=== PATIENT | female | born 1960 | race Caucasian/White ===

== ENCOUNTER 2017-03-14 13:46 | Emergency (ER) | payer BC ==
--- NOTE | 2017-03-14 15:01 | RAD ---
INDICATION: Left elbow and wrist pain after slip and fall injury COMPARISON: None. TECHNIQUE: 2 views left elbow and 3 views of the left wrist. REPORT: The visualized bones are well corticated and properly aligned. There is no radiographically apparent fracture or dislocation. There is no radiographic evidence of pathologic joint effusion. IMPRESSION: No radiographically apparent fracture or dislocation of the left elbow or left wrist. If the patient's symptoms persist further follow-up imaging is recommended.
[2017-03-14 15:29] VITALS: BP 136/76
--- NOTE | 2017-03-15 11:36 | ED ---
Upper Extremity Pain - HPI Summary HPI Summary: Patient presents to the ED with CC of R shoulder, elbow and forearm pain after falling in the lobby a few moments ago. - History of Current Complaint Chief Complaint: EDExtremityUpper Stated Complaint: FALL Time Seen by Provider: 03/14/17 14:02 - Allergies/Home Medications Allergies/Adverse Reactions: Allergies Allergy/AdvReac Type Severity Reaction Status Date / Time Adhesive Tape Allergy Blisters Verified 03/14/17 14:00 MS Acetaminophen Allergy Hives Verified 03/14/17 14:00 [From Percocet] MS Etodolac [From Lodine] Allergy Hives Verified 03/14/17 14:00 MS Oxycodone [From Percocet] Allergy Hives Verified 03/14/17 14:00 MS Ranitidine [From Zantac] Allergy "LOOPY" Verified 03/14/17 14:00 PMH/Surg Hx/FS Hx/Imm Hx Endocrine/Hematology History: Denies: Hx Diabetes Cardiovascular History: Denies: Hx Hypertension, Hx Pacemaker/ICD History: Denies: Hx Renal Disease Sensory History: Denies: Hx Hearing Aid Psychiatric History: Denies: Hx Panic Disorder - Cancer History Hx Chemotherapy: No Hx Radiation Therapy: No - Surgical History Surgery Procedure, Year, and Place: Rt & Lt CARPAL TUNNEL - [place]. 2 C SECTION. Lt BREAST BIOPSY - [place] Infectious Disease History: No Infectious Disease History: Denies: Traveled Outside the [place] in Last 30 Days - Social History Alcohol Use: Occasionally Substance Use Type: Reports: None Smoking Status (MU): Never Smoked Tobacco Physical Exam Vital Signs On Initial Exam: Initial Vitals Temp Pulse Resp BP Pulse Ox 97.6 F 60 16 135/78 98 03/14/17 13:49 03/14/17 13:49 03/14/17 13:49 03/14/17 13:49 03/14/17 13:49 Diagnostics - Vital Signs Vital Signs Temp Pulse Resp BP Pulse Ox 03/14/17 15:20 97.6 F 61 16 136/76 99 03/14/17 13:49 97.6 F 60 16 135/78 98 - Laboratory Lab Statement: Any lab studies that have been ordered have been reviewed, and results considered in the medical decision making process. Discharge - Discharge Plan Condition: Stable Disposition: HOME Patient Education Materials: Contusion in Adults (ED) Referrals: Kaylie Peck MD [Primary Care Provider] - Additional Instructions: Please follow-up with your PCP if symptoms persist Moist heat to the area will help Ibuprofen 600 mg 3 times daily for any pain or inflammation
== END 2017-03-14 15:20 | disposition home or self-care (01) ==
LOC: ED 13:46
DX: M25.511 Pain in right shoulder (principal); M25.521 Pain in right elbow; M79.631 Pain in right forearm; W01.0XXA Fall on same level from slipping, tripping and stumbling without subsequent striking against object, initial encounter; Y92.89 Other specified places as the place of occurrence of the external cause
CPT/HCPCS: 99282

== ENCOUNTER 2017-03-15 18:41 | Emergency (ER) | payer BC ==
[2017-03-15] MEDS ORDERED: Acetaminophen TAB* 325 MG PO ONE (19:32)
--- NOTE | 2017-03-15 20:27 | RAD ---
HISTORY: Left lower lateral rib pain, fall COMPARISONS: None VIEWS: 6, Frontal view of the chest with frontal and oblique views of the left hemithorax FINDINGS: There is no displaced rib fracture or pneumothorax. The visualized lungs are clear. IMPRESSION: NO DISPLACED RIB FRACTURE OR PNEUMOTHORAX
[2017-03-15] MEDS ORDERED: traMADol TAB* 50 MG PO ONE ×2 (20:49→20:57)
--- NOTE | 2017-03-15 21:02 | ED ---
Taras Orosco Jennifer, scribed for Fernando Quevedo MD on 03/15/17 at 1936 . HPI Chest Pain - HPI Summary HPI Summary: The patient is a 56 year old female who presents to the ED with pain on the left side after she fell on ice one hour ago. She complains of pain along the left ribs and abdominal pain that shoots up to the ribs. The patient denies headache, ankle pain, knee pain, and wrist pain. She adds that she has hurt her ribs before. - History of Current Complaint Chief Complaint: EDChestWallPain Time Seen by Provider: 03/15/17 19:24 Hx Obtained From: Patient Onset/Duration: Started Hours Ago - one hour ago, Still Present Timing: Constant Initial Severity: Moderate Current Severity: Moderate Pain Intensity: 8 Pain Scale Used: 0-10 Numeric Chest Pain Location: Diffuse - shoots up to the ribs Chest Pain Radiates: Yes Chest Pain Radiates To:: Back - along the left side Aggravating Factor(s): Nothing Alleviating Factor(s): Nothing Associated Signs and Symptoms: Positive: Other: - Rib pain, left side pain. NEGATIVE: Headache, ankle pain, knee pain, wrist pain. - Allergy/Home Medications Allergies/Adverse Reactions: Allergies Allergy/AdvReac Type Severity Reaction Status Date / Time Adhesive Tape Allergy Blisters Verified 03/14/17 14:00 MS Acetaminophen Allergy Hives Verified 03/14/17 14:00 [From Percocet] MS Etodolac [From Lodine] Allergy Hives Verified 03/14/17 14:00 MS Oxycodone [From Percocet] Allergy Hives Verified 03/14/17 14:00 MS Ranitidine [From Zantac] Allergy "LOOPY" Verified 03/14/17 14:00 PMH/Surg Hx/FS Hx/Imm Hx Endocrine/Hematology History: Denies: Hx Diabetes Cardiovascular History: Denies: Hx Hypertension, Hx Pacemaker/ICD History: Denies: Hx Renal Disease Sensory History: Denies: Hx Hearing Aid Psychiatric History: Denies: Hx Panic Disorder - Cancer History Hx Chemotherapy: No Hx Radiation Therapy: No - Surgical History Surgery Procedure, Year, and Place: Rt & Lt CARPAL TUNNEL - [place]. 2 C SECTION. Lt BREAST BIOPSY - [place] Infectious Disease History: No Infectious Disease History: Denies: Traveled Outside the [place] in Last 30 Days - Family History Known Family History: Negative: Diabetes - Social History Alcohol Use: Occasionally Substance Use Type: Reports: None Smoking Status (MU): Never Smoked Tobacco Review of Systems Negative: Fever Positive: Other - Rib pain, left side pain. Negative: Myalgia - ankle, knee, wrist Negative: Headache All Other Systems Reviewed And Are Negative: Yes Physical Exam - Summary Physical Exam Summary: General: well-appearing, no pain distress Skin: warm, color reflects adequate perfusion, dry Head: normal Eyes: EOMI, DEVORA ENT: normal Neck: supple, nontender Respiratory: CTA, breath sounds present. Lungs clear. Cardiovascular: RRR Abdomen: soft, nontender. No CVA tenderness. Bowel: present Musculoskeletal: tender left lateral ribs, strength/ROM intact Neurological: normal, sensory/motor intact, A&O x3 Psychological: affect/mood appropriate Triage Information Reviewed: Yes Vital Signs On Initial Exam: Initial Vitals Temp Pulse Resp BP Pulse Ox 97.7 F 82 22 156/78 98 03/15/17 18:48 03/15/17 18:48 03/15/17 18:48 03/15/17 18:48 03/15/17 18:48 Vital Signs Reviewed: Yes Diagnostics - Vital Signs Vital Signs Temp Pulse Resp BP Pulse Ox 03/15/17 18:48 97.7 F 82 22 156/78 98 - Laboratory Lab Statement: Any lab studies that have been ordered have been reviewed, and results considered in the medical decision making process. - Radiology Ribs with Chest XR Xray Interpretation: No Acute Changes - NO DISPLACED RIB FRACTURE OR PNEUMOTHORAX. Dr. Quevedo has reviewed this report. Radiology Interpretation Completed By: Radiologist Chest Pain Course/Dx - Course Course Of Treatment: BP noted and advised to follow up with PCP. Allergies noted. Medications reviewed. - Diagnoses Provider Diagnoses: Blood pressure elevated without history of HTN, Chest wall pain, Rib contusion Discharge - Discharge Plan Condition: Stable Disposition: HOME Prescriptions: traMADol TAB* [Ultram*] 50 mg PO Q6HR PRN #20 tab MDD 4 PRN Reason: Pain Patient Education Materials: Rib Contusion (ED), Chest Wall Pain (ED) Referrals: Kaylie Peck MD [Primary Care Provider] - Additional Instructions: FOLLOW UP WITH YOUR DOCTOR. RETURN TO THE EMERGENCY DEPARTMENT FOR ANY WORSENING OF YOUR CONDITION OR QUESTIONS OR CONCERNS. Your blood pressure was elevated during todays visit; please follow up with your primary care provider within a week for further evaluation. The documentation as recorded by the Taras thapa Jennifer accurately reflects the service I personally performed and the decisions made by me, Fernando Quevedo MD.
[2017-03-15 21:56] VITALS: BP 147/73
== END 2017-03-15 21:55 | disposition home or self-care (01) ==
LOC: ED 18:41
DX: S20.212A Contusion of left front wall of thorax, initial encounter (principal); W00.0XXA Fall on same level due to ice and snow, initial encounter; Y92.9 Unspecified place or not applicable; R07.89 Other chest pain; R03.0 Elevated blood-pressure reading, without diagnosis of hypertension; Z88.6 Allergy status to analgesic agent; Z88.5 Allergy status to narcotic agent; Z88.8 Allergy status to other drugs, medicaments and biological substances
CPT/HCPCS: 99284; A9270-GY

== ENCOUNTER 2017-12-25 10:34 | Emergency (ER) | payer BC ==
--- NOTE | 2017-12-25 11:02 | ED ---
Lower Extremity - HPI Summary HPI Summary: 57-year-old female presents with right foot injury yesterday. She states she inverted her right foot. She has tenderness over her fifth metatarsal. No numbness or tingling. she is able to ambulate. No knee pain. No other injury. she states it was mechanical fall. Has no medical conditions. - History of Current Complaint Chief Complaint: EDExtremityLower Stated Complaint: RIGHT FOOT PAIN Time Seen by Provider: 12/25/17 10:43 Pain Intensity: 7 - Allergies/Home Medications Allergies/Adverse Reactions: Allergies Allergy/AdvReac Type Severity Reaction Status Date / Time acetaminophen [From Percocet] Allergy Hives Verified 10/22/17 12:14 Adhesive Tape Allergy Blisters Verified 10/22/17 12:14 etodolac Allergy Hives Verified 10/22/17 12:14 oxycodone [From Percocet] Allergy Hives Verified 10/22/17 12:14 ranitidine Allergy Altered Verified 10/22/17 12:14 Mental Status tramadol Allergy Hives Verified 10/22/17 12:14 PMH/Surg Hx/FS Hx/Imm Hx Endocrine/Hematology History: Denies: Hx Diabetes Cardiovascular History: Denies: Hx Hypertension, Hx Pacemaker/ICD History: Denies: Hx Renal Disease Sensory History: Reports: Hx Hearing Aid Psychiatric History: Denies: Hx Panic Disorder - Cancer History Hx Chemotherapy: No Hx Radiation Therapy: No - Surgical History Surgery Procedure, Year, and Place: Rt & Lt CARPAL TUNNEL - [place]. 2 C SECTION. Lt BREAST BIOPSY - [place] Infectious Disease History: No Infectious Disease History: Denies: Traveled Outside the [place] in Last 30 Days - Family History Known Family History: Negative: Diabetes - Social History Alcohol Use: Occasionally Substance Use Type: Reports: None Smoking Status (MU): Never Smoked Tobacco Review of Systems Negative: Fever Negative: Chest Pain Negative: Shortness Of Breath Positive: Myalgia - right foot pain All Other Systems Reviewed And Are Negative: Yes Physical Exam Triage Information Reviewed: Yes Vital Signs On Initial Exam: Initial Vitals Temp Pulse Resp BP Pulse Ox 96.7 F 59 18 141/76 96 12/25/17 10:36 12/25/17 10:36 12/25/17 10:36 12/25/17 10:36 12/25/17 10:36 Vital Signs Reviewed: Yes Appearance: Positive: Well-Appearing Skin: Positive: Warm, Dry Head/Face: Positive: Normal Head/Face Inspection Eyes: Positive: Normal, Conjunctiva Clear ENT: Positive: Pharynx normal Respiratory/Lung Sounds: Positive: Clear to Auscultation, Breath Sounds Present Cardiovascular: Positive: Normal, RRR Musculoskeletal: Positive: Limited @ - right foot, Other - Tenderness over fifth metatarsal, good pulses, cap refill less than 2 seconds, nontender knee, edema over fifth metatarsal right foot Neurological: Positive: Normal Psychiatric: Positive: Normal Diagnostics - Vital Signs Vital Signs Temp Pulse Resp BP Pulse Ox 12/25/17 10:36 96.7 F 59 18 141/76 96 - Laboratory Lab Statement: Any lab studies that have been ordered have been reviewed, and results considered in the medical decision making process. - Radiology foot Radiology Interpretation Completed By: Radiologist Summary of Radiographic Findings: IMPRESSION: #. Mild soft tissue swelling. Negative for fracture. Lower Extremity Course/Dx - Course Course Of Treatment: 57-year-old female presents with right foot injury yesterday. She states she inverted her right foot. She has tenderness over her fifth metatarsal. No numbness or tingling. she is able to ambulate. No knee pain. No other injury. she states it was mechanical fall. Has no medical conditions. On exam tenderness over right fifth metatarsal. Neurovascular intact. X-ray shows no fx. will treat with RICE. patient understand and agrees with plan. - Diagnoses Differential Diagnosis/HQI/PQRI: Positive: Contusion, Fracture (Closed), Sprain Provider Diagnoses: Right foot injury Discharge - Sign-Out/Discharge Documenting (check all that apply): Patient Departure - Discharge Plan Condition: Good Disposition: HOME Patient Education Materials: Foot Sprain (ED) Referrals: Kaylie Peck MD [Primary Care Provider] - Additional Instructions: Wear hard sole shoes Ice, elevate Take Tylenol or ibuprofen for pain every 6 hours as needed Follow up with primary if no improvement Return to ED if develop or any new or worsening symptoms - Billing Disposition and Condition Condition: GOOD Disposition: Home
[2017-12-25 12:06] VITALS: BP 127/78
== END 2017-12-25 12:03 | disposition home or self-care (01) ==
LOC: ED 10:34
DX: S99.921A Unspecified injury of right foot, initial encounter (principal); Y92.9 Unspecified place or not applicable; W19.XXXA Unspecified fall, initial encounter
CPT/HCPCS: 99282